=== PATIENT | female | born 1995 | race Two or more races ===

== ENCOUNTER 2024-05-01 11:35 | Emergency (ER) | payer OTHER ==
[~2024-05-01] VITALS: Ht 154.9 cm; Wt 58.5 kg
[2024-05-01] MEDS ORDERED: CEFTRIAXONE SODIUM 2,000 MG VIAL IV STA (12:40)
[2024-05-01] MEDS ORDERED: DEXAMETHASONE SODIUM PHOSPHATE 4 MG/ML VIAL IM STA (12:40)
[2024-05-01] MEDS ORDERED: ONDANSETRON HCL 2 MG/ML VIAL IM STA (12:41)
[2024-05-01 14:51] LABS: HEMATOCRIT 38.3 % (36.0-45.00); HEMOGLOBIN 12.8 g/dL (12.0-15.00); MEAN CELL VOLUME 85.4 fL (80.00-100.00); MEAN CORPUSCULAR HEMOGLOBIN 28.5 pg (27.00-32.0); MEAN CORPUSCULAR HGB CONC 33.4 g/dl (32.0-36.0); PLATELET COUNT 244 K/uL (150-450); RED BLOOD COUNT 4.49 M/uL (4.00-6.00); RED CELL DISTRIBUTION WIDTH 14.4 % (11.5-14.5)
== END 2024-05-01 16:37 | disposition home or self-care (01) ==
LOC: ER 11:38
PROVIDERS: General Practice
DX: R53.81 Other malaise (principal); J03.90 Acute tonsillitis, unspecified; Z91.013 Allergy to seafood; Z91.038 Other insect allergy status